=== PATIENT | female | born 1975 | race Caucasian/White ===

== ENCOUNTER 2017-03-02 04:48 | Emergency (ER) | END 2017-03-02 08:28 | disposition home or self-care (01) | DX: R06.02 Shortness of breath (principal); R07.89 Other chest pain | CPT/HCPCS: 71020; 84484; 93005; Z7502; Z7610 ==

== ENCOUNTER 2017-06-16 22:01 | Emergency (ER) | payer MEDICAID ==
[~2017-06-16] VITALS: Ht 162.6 cm; Wt 81.0 kg
[~2017-06-16 22:01] MED LIST: HYDR-3498 PO; IBUP-1542 PO; NITR-58 PO
[2017-06-16 22:07] VITALS: Ht 162.6 cm; Wt 81.0 kg
[2017-06-16] MEDS ORDERED: GENT5DRO28 RIGHT EYE (22:44)
--- NOTE | 2017-06-16 22:48 | ERD ---
ER Documentation Chief Complaint Chief Complaint R eye pain/redness d/t gluegun injury on eye- +vision but +sensitivity HPI Otherwise healthy 42-year-old female presenting with a chief complaints of hot glue gun versus eye 30 hours ago. Has not done anything to relieve the symptoms. Complains of her right eye. No discharge, change in vision, pain, or irritation. No headache. No fevers, chills. Patient has no other complaints and describes no other associated manifestations. Nursing notes have been reviewed and are consistent with history given. ROS All systems reviewed and are negative except as per history of present illness. Medications Home Meds Active Scripts Ciprofloxacin Opht* (Ciloxan*) 0.3%-3.5 Opht Oint, 1 APPLIC RIGHT EYE TID for 14 Days, EA Prov:GOLDY GARCIA PA-C 06/16/17 Ibuprofen* (Motrin*) 600 Mg Tab, 600 MG PO Q6, #20 TAB Prov:JASPAL JANG PA-C 03/02/17 Nitrofurantoin Monohyd Macrocr* (Macrobid*) 100 Mg Capsr, 100 MG PO BID for 7 Days, CAP Prov:SHAHEEN POLANCO PA-C 11/22/15 Hydrocodone Bit-Acetaminophen* ([place]*) 5-325 Mg Tab, 1 TAB PO Q6 Y for PAIN, # 10 TAB Prov:DOMINIC ZAMORA PA-C 01/06/15 Discontinued Scripts Gentamicin Sulfate* (Gentamicin Sulfate* Ophth) 0.3% - 5 Ml Drops, 1 DROP RIGHT EYE Q4 for 14 Days, EA Prov:GOLDY GARCIA PA-C 06/16/17 Allergies Allergies: Coded Allergies: No Known Drug Allergies (Verified Allergy, Unknown, 05/18/14) PMhx/Soc History of Surgery: Yes (gallblader 1999, surgical 2012) Anesthesia Reaction: No Hx Neurological Disorder: No Hx Respiratory Disorders: No Hx Cardiac Disorders: No Hx Psychiatric Problems: No Hx Miscellaneous Medical Probl: Yes (gestational DM) Hx Alcohol Use: Yes (SOCIAL ) Hx Substance Use: No Hx Tobacco Use: No Smoking Status: Never smoker Physical Exam Vitals Vital Signs Date Time Temp Pulse Resp B/P Pulse Ox O2 Delivery O2 Flow Rate FiO2 06/16/17 22:07 97.8 91 20 179/103 98 Physical Exam Const: Overweight 42-year-old female no acute distress Head: Atraumatic Eyes: Right lateral conjunctival injection. PERRLA, EOMI, no nystagmus. No swelling or other obvious abnormalities. No foreign body visualized. ENT: Normal External Ears, Nose and Mouth. Skin: No petechiae or rashes Back: No midline or flank tenderness Ext: No cyanosis, or edema Neur: Awake and alert Psych: Normal Mood and Affect Procedures/MDM Patient presents 30 hours status post hot glue gun versus right eye. Visual acuity was obtained and intact. No pain or concerning signs for endangerment of vision loss or other acute right eye. Antibiotic drops were prescribed outpatient. Have recommended nnia-cco-yvqxoqq acetaminophen for discomfort. Presented the case my attending who agrees with my assessment and plan. I have spoke with the patient regarding their condition and future management. They have verbally responded that they understand their status and treatment plan. The patients vitals are stable, and their current condition is appropriate for discharge. The patient will be given discharge instructions with return precautions. Ophthalmology list given with recommendation for 24-hour follow-up Departure Diagnosis: Primary Impression: Eye injury Encounter type: initial encounter Laterality: right Qualified Code: S05.91XA - Right eye injury, initial encounter Condition: Stable Patient Instructions: Flash Burn, Eye Additional Instructions: Follow up with your ophthalmology within the next 24 hours for a more thorough evaluation and a possible referral to a specialist. Return the the emergency department immediately if symptoms worsen or change. If you have any questions regarding medications, ask your pharmacist or us before you leave. If any adverse reactions occur while taking your medications, discontinue the treatment and return to the emergency department immediately. Take your medications as directed, and complete the entire course of treatment. GOLDY GARCIA PA-C Jun 16, 2017 22:48
[2017-06-16] MEDS ORDERED: CPR3OO3.5 RIGHT EYE (22:55)
== END 2017-06-16 23:16 | disposition home or self-care (01) ==
LOC: FTE 22:01
DX: S05.91XA Unspecified injury of right eye and orbit, initial encounter (principal); W22.8XXA Striking against or struck by other objects, initial encounter; Y92.9 Unspecified place or not applicable
CPT/HCPCS: 99283

== ENCOUNTER 2018-01-28 19:05 | Emergency (ER) | END 2018-01-28 22:02 | disposition left against medical advice (07) ==

== ENCOUNTER 2018-08-20 09:57 | Emergency (ER) | payer MEDICAID ==
[~2018-08-20] VITALS: Wt 79.0 kg
[~2018-08-20 09:57] MED LIST changes: +CPR3OO3.5 RIGHT EYE
[2018-08-20 09:59] VITALS: BP 158/78; PULSE 82; RESP 18
[2018-08-20] MEDS ORDERED: AZIT250T PO (10:32)
[2018-08-20] MEDS ORDERED: BENZ-6 PO (10:32)
[2018-08-20] MEDS ORDERED: ALBU18HF INHALATION (10:32)
--- NOTE | 2018-08-20 10:39 | ERD ---
ER Documentation Chief Complaint Chief Complaint DRY COUGH X 3 WEEKS HPI 43-year-old female patient with no significant past medical history presents to ED complaining of a dry cough that started 3 weeks ago. Patient reports that she tried weac-nly-mtypwio cough medication such as Robitussin however it has not helped with her symptoms. Denies any chest pain, wheezing, shortness of breath, nausea, vomiting, diarrhea, neck stiffness. Denies any recent traveling. Denies taking any control. ROS All systems reviewed and are negative except as per history of present illness. Medications Home Meds Active Scripts Albuterol Sulfate* (Ventolin HFA*) 18 Gm Hfa.aer.ad, 2 PUFF INHALATION Q4H, #1 INHALER Prov:SHAHEEN POLANCO PA-C 08/20/18 Azithromycin* (Zithromax*) 250 Mg Tablet, 250 MG PO .ZPACK DIRECTED, #6 TAB TAKE 500 MG (2 TABS) THE FIRST DAY THEN 250 MG (1 TAB) DAYS 2-5 Prov:SHAHEEN POLANCO PA-C 08/20/18 Benzonatate* (Tessalon Perle*) 100 Mg Capsule, 100 MG PO Q8H PRN for COUGH, #20 CAP Prov:SHAHEEN POLANCO PA-C 08/20/18 Ciprofloxacin Opht* (Ciloxan*) 0.3%-3.5 Opht Oint, 1 APPLIC RIGHT EYE TID for 14 Days, EA Prov:GOLDY GARCIA PA-C 06/16/17 Ibuprofen* (Motrin*) 600 Mg Tab, 600 MG PO Q6, #20 TAB Prov:JASPAL JANGC 03/02/17 Nitrofurantoin Monohyd Macrocr* (Macrobid*) 100 Mg Capsr, 100 MG PO BID for 7 Days, CAP Prov:SHAHEEN POLANCO PA-C 11/22/15 Hydrocodone Bit-Acetaminophen* ([place]*) 5-325 Mg Tab, 1 TAB PO Q6 PRN for PAIN, #10 TAB Prov:DOMINIC ZAMORA PA-C 01/06/15 Allergies Allergies: Coded Allergies: No Known Drug Allergies (Verified Allergy, Unknown, 05/18/14) PMhx/Soc History of Surgery: Yes (gallblader 1999, surgical 2012) Anesthesia Reaction: No Hx Neurological Disorder: No Hx Respiratory Disorders: No Hx Cardiac Disorders: No Hx Psychiatric Problems: No Hx Miscellaneous Medical Probl: Yes (gestational DM) Hx Alcohol Use: Yes (SOCIAL ) Hx Substance Use: No Hx Tobacco Use: No FmHx Family History: No diabetes, No coronary disease Physical Exam Vitals Vital Signs Date Temp Pulse Resp B/P (MAP) Pulse Ox O2 O2 Flow FiO2 Time Delivery Rate 08/20/18 98.1 82 18 158/78 99 09:59 (104) Physical Exam Const: Dea-krr-wiilxithv, well-nourished. In no acute distress. Head: Atraumatic, normocephalic Eyes: Normal Conjunctiva without injection. No purulent discharge. PERRL. EOMI ENT: Normal external ear. Ear canal without erythema. Tympanic membrane pearly dubose without effusion or bulging. Nasal canal clear with normal turbinates. Moist oropharynx without tonsillar exudates. Non-erythematous pharynx. Uvula midline. No drooling. No trismus. Neck: Full range of motion. No meningismus. No cervical lymphadenopathy. Resp: Clear to auscultation bilaterally. No wheezing, rhonchi, rales, or crackles. No accessory muscle use. No retractions. Cardio: Regular rate and rhythm. No murmurs, rubs or gallops. Abd: Soft, non tender, non distended. Normal bowel sounds. No palpable masses. No rebound tenderness. No guarding. Skin: No petechiae or rashes Back: No midline tenderness. No CVA tenderness. Ext: No cyanosis, or edema. Neur: Awake and alert. Psych: Normal Mood and Affect Procedures/MDM 43-year-old female patient with no significant past medical history presents to ED complaining of a dry cough that started 3 weeks ago. Patient is afebrile and nontoxic-appearing. Patient likely has bronchitis, patient will be treated on outpatient basis for bacterial etiology. This patient presents to the ED with symptoms consistent with a viral acute upper respiratory infection. Patient's physical exam include lungs which were clear to auscultation and a normal pulse oximetry. There is a low suspicion for pneumonia, pneumothorax, mononucleosis, pulmonary embolism, epiglottitis, otitis media, otitis externa, viral/strep pharyngitis, sinusitis, myocarditis, pericarditis, endocarditis, peritonsillar abscess, mastoiditis, retropharyngeal abscess, meningitis, sepsis, acute abdomen or other emergent conditions. Fluids, rest, and symptomatic treatment are recommended for the management of patient's symptoms. Diagnosis: Cough Discharge medications: Ventolin, Zithromax Patient was instructed to return to the ED for any new or worsening symptoms. They should otherwise follow up with the primary care provider within 2-3 days. The patient's questions were answered at the time of discharge. Patient understood and agreed with discharge management. Departure Diagnosis: Primary Impression: Cough Condition: Stable Patient Instructions: Bronchitis, Antiobiotic Treatment (Adult) Referrals: [facility] YOU HAVE RECEIVED A MEDICAL SCREENING EXAM AND THE RESULTS INDICATE THAT YOU DO NOT HAVE A CONDITION THAT REQUIRES URGENT TREATMENT IN THE EMERGENCY DEPARTMENT. FURTHER EVALUATION AND TREATMENT OF YOUR CONDITION CAN WAIT UNTIL YOU ARE SEEN IN YOUR DOCTORS OFFICE WITHIN THE NEXT 1-2 DAYS. IT IS YOUR RESPONSIBILITY TO MAKE AN APPOINTMENT FOR FOLOW-UP CARE. IF YOU HAVE A PRIMARY DOCTOR --you should call your primary doctor and schedule an appointment IF YOU DO NOT HAVE A PRIMARY DOCTOR YOU CAN CALL OUR PHYSICIAN REFERRAL HOTLINE AT IF YOU CAN NOT AFFORD TO SEE A PHYSICIAN YOU CAN CHOSE FROM THE FOLLOWING [facility] [address] [facility]. [facility] [address] [facility]. [facility] [address] [facility] [facility] [address] [facility]. [facility] [address] [facility] [facility]. [address] [facility]. [facility] YOU HAVE RECEIVED A MEDICAL SCREENING EXAM AND THE RESULTS INDICATE THAT YOU DO NOT HAVE A CONDITION THAT REQUIRES URGENT TREATMENT IN THE EMERGENCY DEPARTMENT. FURTHER EVALUATION AND TREATMENT OF YOUR CONDITION CAN WAIT UNTIL YOU ARE SEEN IN YOUR DOCTORS OFFICE WITHIN THE NEXT 1-2 DAYS. IT IS YOUR RESPONSIBILITY TO MAKE AN APPOINTMENT FOR FOLOW-UP CARE. IF YOU HAVE A PRIMARY DOCTOR --you should call your primary doctor and schedule and appointment IF YOU DO NOT HAVE A PRIMARY DOCTOR YOU CAN CALL OUR PHYSICIAN REFERRAL HOTLINE AT . IF YOU CAN NOT AFFORD TO SEE A PHYSICIAN YOU CAN CHOSE FROM THE FOLLOWING [facility] INSTITUTIONS: [facility] [address] [place] [address] [facility] [address] [place] [address] [facility] [address] [place] [address] [facility] URGENT CARE/SPECIALTIES Additional Instructions: Call your primary care doctor TOMORROW for an appointment during the next 2-3 days.See the doctor sooner or return here if your condition worsens before your appointment time. SHAHEEN POLANCO PA-C Aug 20, 2018 10:39
== END 2018-08-20 10:45 | disposition home or self-care (01) ==
LOC: FTE 09:57
DX: R05 Cough (principal)
CPT/HCPCS: 99283

== ENCOUNTER 2018-10-22 16:22 | Emergency (ER) | payer MEDICAID ==
[~2018-10-22] VITALS: Ht 157.5 cm; Wt 80.8 kg
[~2018-10-22 16:22] MED LIST changes: +ALBU18HF INHALATION; +AZIT250T PO; +BENZ-6 PO
[2018-10-22 16:54] VITALS: Ht 157.5 cm; Wt 80.8 kg
[2018-10-22] MEDS ORDERED: SOD CHLORIDE 0.9% 1,000 ML IV STA (18:20)
[2018-10-22] MEDS ORDERED: METHYLPREDNISOLONE 125 MG INJ IV STA (18:20)
[2018-10-22] MEDS ORDERED: DIPHENHYDRAMINE 50 MG INJ IV ONE (18:30)
[2018-10-22] MEDS ORDERED: MECLIZINE 12.5 MG TAB PO ONE (18:30)
--- NOTE | 2018-10-22 18:44 | ERD ---
ER Documentation Chief Complaint Chief Complaint throat numbness, dizziness, blurry vision, YANG X 1 day HPI This is a 43-year-old female that presents to the emergency department complaining of a sore throat for the past several days. Patient indicates she took amoxicillin that have been prescribed her but he never completed as she thought this was strep throat. She states however this was not prescribed by physician and she has not yet seen a physician for symptoms. She stated after taking the amoxicillin she felt slightly lightheaded dizzy and numbness of her throat tongue and lips. She went to the emergency department and took sxan-fem-adjkaao allergy medication. She indicated shortly after she felt lightheaded and dizzy. She denied any headache. She stated she felt a slight amount of swelling of her lips. She became very lightheaded and dizzy and felt as though she was going to pass out. She denied any chest pain or pressure that radiated to the neck arm back or jaw but was experience any palpitations. She started to notice her vision became slightly blurry and therefore she came to the emergency department to be further evaluated. The blurry vision has resolved. She indicates she does not wear glasses or contacts. She feels the swelling of her lips has improved. She denies any pruritus. She denies any abdominal pain. She denies any recent travel or prolonged immobilization. She states she has taken amoxicillin in the past with no similar symptoms. ROS All systems reviewed and are negative except as per history of present illness. Medications Home Meds Active Scripts Diphenhydramine Hcl (Benadryl) 25 Mg Cap, 25 MG PO Q6, #20 CAP Prov:JOHANNA GUEVARA MD 10/22/18 Meclizine Hcl* (Antivert*) 12.5 Mg Tab, 12.5 MG PO Q6H PRN for DIZZINESS, #20 TAB Prov:JOHANNA GUEVARA MD 10/22/18 Albuterol Sulfate* (Ventolin HFA*) 18 Gm Hfa.aer.ad, 2 PUFF INHALATION Q4H, #1 INHALER Prov:SHAHEEN POLANCO PA-C 08/20/18 Reported Medications Acetaminophen* (Acetaminophen*) 500 MG Extra Strength Tablet, 500 MG PO Q4H PRN for PAIN AND OR ELEVATED TEMP, TAB 10/22/18 Calcium Carbonate* (Tums X-Str) 300 Mg Tab.chew, 300 MG PO, TAB.CHEW 10/22/18 Discontinued Scripts Azithromycin* (Zithromax*) 250 Mg Tablet, 250 MG PO .ZPACK DIRECTED, #6 TAB TAKE 500 MG (2 TABS) THE FIRST DAY THEN 250 MG (1 TAB) DAYS 2-5 Prov:SHAHEEN POLANCO PA-C 08/20/18 Benzonatate* (Tessalon Perle*) 100 Mg Capsule, 100 MG PO Q8H PRN for COUGH, #20 CAP Prov:SHAHEEN POLANCO PA-C 08/20/18 Ciprofloxacin Opht* (Ciloxan*) 0.3%-3.5 Opht Oint, 1 APPLIC RIGHT EYE TID for 14 Days, EA Prov:GOLDY GARCIA PA-C 06/16/17 Ibuprofen* (Motrin*) 600 Mg Tab, 600 MG PO Q6, #20 TAB Prov:JASPAL JANG PA-C 03/02/17 Nitrofurantoin Monohyd Macrocr* (Macrobid*) 100 Mg Capsr, 100 MG PO BID for 7 Days, CAP Prov:SHAHEEN POLANCO PA-C 11/22/15 Hydrocodone Bit-Acetaminophen* ([place]*) 5-325 Mg Tab, 1 TAB PO Q6 PRN for PAIN, #10 TAB Prov:DOMINIC ZAMORA PA-C 01/06/15 Allergies Allergies: Coded Allergies: No Known Drug Allergies (Unverified Allergy, Unknown, 10/22/18) PMhx/Soc History of Surgery: Yes (gallblader 1999, surgical 2012) Anesthesia Reaction: No Hx Neurological Disorder: No Hx Respiratory Disorders: No Hx Cardiac Disorders: No Hx Psychiatric Problems: No Hx Miscellaneous Medical Probl: Yes (gestational DM) Hx Alcohol Use: Yes (SOCIAL ) Hx Substance Use: No Hx Tobacco Use: No Physical Exam Vitals Vital Signs Date Temp Pulse Resp B/P (MAP) Pulse Ox O2 O2 Flow FiO2 Time Delivery Rate 10/22/18 75 18 150/92 100 Room Air 20:47 (111) 10/22/18 77 18 170/88 100 Room Air 18:30 (115) 10/22/18 97.4 83 18 172/112 100 16:54 (132) Physical Exam Constitutional:Well-developed. Well-nourished. HEENT:Normocephalic. Atraumatic.Pupils were equal round reactive to light. Moist mucous membranes.No tonsillar exudates however erythema both tonsils. Uvula midline. No macroglossia. No angioedema. Funduscopy exam shows sharp optic disks and venous pulsations were present Neck: No nuchal rigidity. No lymphadenopathy. No posterior cervical spine tenderness or step-offs. Respiratory: Not using accessory muscles of respiration.Lungs were clear to auscultation bilaterally. No rhonchi. No rales. No wheezing. Cardiovascular: Regular rate regular rhythm.No murmurs. No rubs were appreciated.S1, S2 normal. Distal pulses are palpable 2+ bilaterally. GI: Abdomen was soft. Nontender. Non Distended. No pulsatile abdominal masses or bruits. No rebound. No guarding. Bowel sounds were present and normal. Muscle skeletal: Full range of motion of both the upper and lower extremities bilaterally.Normal muscle tone.No assymetrical calf tenderness or swelling. Skin: No petechia, no purpura. No lesions on the palms or the soles of the feet. No maculopapular rash. NEURO: Patient was alert, awake, orientated x3.No facial droop. Gait observed and normal with no ataxia.Speech had regular rate and rhythm. No focal neurological deficits. Station intact to sharp and dull of the upper and lower extremities and facial region. Peripheral fatigable nystagmus. Result Diagram: 10/22/18191910/22/181920 Results 24 hrs Laboratory Tests Test 10/22/18 19:20 10/22/18 19:21 10/22/18 19:25 10/22/18 19:38 White Blood Count 10.0 10^3/ul Red Blood Count 4.65 10^6/ul Hemoglobin 10.0 g/dl Hematocrit 33.0 % Mean Corpuscular 71.0 fl Volume Mean Corpuscular 21.5 pg Hemoglobin Mean Corpuscular 30.3 g/dl Hemoglobin Concen t Red Cell 17.2 % Distribution Width Platelet Count 342 10^3/UL Mean Platelet 10.6 fl Volume Immature 0.400 % Granulocytes % Neutrophils % 59.8 % Lymphocytes % 31.5 % Monocytes % 6.2 % Eosinophils % 1.5 % Basophils % 0.6 % Nucleated Red 0.0 /100WBC Blood Cells % Immature 0.040 10^3/ul Granulocytes # Neutrophils # 6.0 10^3/ul Lymphocytes # 3.2 10^3/ul Monocytes # 0.6 10^3/ul Eosinophils # 0.2 10^3/ul Basophils # 0.1 10^3/ul Nucleated Red 0.0 10^3/ul Blood Cells # Prothrombin Time 12.7 Sec Prothrombin Time 1.0 Ratio INR International 0.94 Normalized Ratio Activated 28.6 Sec Partial Thrombopl ast Time Sodium Level 137 mmol/L Potassium Level 3.9 mmol/L Chloride Level 97 mmol/L Carbon Dioxide 28 mmol/L Level Anion Gap 12 Blood Urea 13 mg/dl Nitrogen Creatinine 0.38 mg/dl Est Glomerular > 60 mL/min Filtrat Rate mL/min Glucose Level 160 mg/dl Calcium Level 9.5 mg/dl Total Bilirubin 0.1 mg/dl Direct Bilirubin 0.00 mg/dl Indirect 0.1 mg/dl Bilirubin Aspartate Amino 27 IU/L Transf (AST/SGOT) Alanine 26 IU/L Aminotransferase (ALT/SGPT) Alkaline 68 IU/L Phosphatase Creatine Kinase 51 IU/L Creatine Kinase 1.4 Index Creatinine Kinase 0.73 ng/ml MB (Mass) Troponin I < 0.012 ng/ml Total Protein 7.5 g/dl Albumin 4.0 g/dl Globulin 3.50 g/dl Albumin/Globulin 1.14 Ratio Urine Color STRAW Urine Clarity CLEAR Urine pH 7.0 Urine Specific 1.010 [place] Urine Ketones NEGATIVE mg/dL Urine Nitrite NEGATIVE mg/dL Urine Bilirubin NEGATIVE mg/dL Urine NEGATIVE mg/dL Urobilinogen Urine Leukocyte NEGATIVE [place]/ul Esterase Urine Hemoglobin NEGATIVE mg/dL Urine Glucose NEGATIVE mg/dL Urine Total NEGATIVE mg/dl Protein POC Beta HCG, NEGATIVE Qualitative Current Medications Medications Dose Sig/Po Start Time Status Last (Trade) Ordered Route PRN Stop Time Admin Dose Reason Admin Sodium 1,000 ml @ Q1H STAT 10/22/18 DC 10/22/18 Chloride 1,000 mls/hr IV 18:20 10/22/18 19:31 19:19 Meclizine 25 mg ONCE ONCE 10/22/18 DC 10/22/18 HCl PO 18:30 10/22/18 19:26 (Antivert) 18:31 25 mg ONCE ONCE 10/22/18 DC 10/22/18 Diphenhydrami IV 18:30 10/22/18 19:26 ne HCl 18:31 (Benadryl) 125 mg ONCE STAT 10/22/18 DC 10/22/18 Methylprednis IV 18:20 10/22/18 19:26 olone Sodium 18:24 Succinate (Solu-Medrol) Procedures/MDM This patient was seen and evaluated by myself. The patient presented to the emergency department complaining of dizziness. My differential diagnosis included but was not limited to hypovolemia, myocardial infarction, pulmonary embolism, hypoglycemia, hypoxia, anemia, vasovagal episode, hypothyroidism, anxiety, peripheral or central vertigo. The patient was placed on a nuclear monitoring technician, continuous pulse oximetry and IV access established by nursing staff. The patient was given IV fluids Zofran and Antivert. She was also treated for suspected allergic reaction. She was given IV Benadryl Pepcid and Solu-Medrol. The patient was complaining of dizziness and palpitations I did feel is necessary to obtain an EKG to rule out for atypical myocardial ischemia. 12 Lead EKG tracing ordered and reviewed by myself showed: Normal sinus rhythm of 96 bpm and no arrhythmia. NV interval normal. QRS duration normal. No ST segment elevation No ST segment depression. No changes consistent with acute ischemia. The patient had no severe electrolyte abnormalities. Observation Note: Time: 6 hours Family Hx: No Hypertension Evaluation: Multiple exams showed improving symptoms and no evidence of worsening of her symptoms. I did feel she had an adverse reaction to the a moxicillin in addition to peripheral vertigo can be safely discharged home. The patient was discharged home in fair condition. They were instructed to return to the emergency department at any time if there was any worsening of their condition. The patient stated they would follow up with their PCP in the next 24-48 hours to initiate a suitable medication regimen under the care of their PCP as well as to allow their PCP to monitor any drug reactions. The patient was discharged home with prescriptions after they gave informed consent to the new medication. They were also fully informed by myself on the adverse effects and adverse drug interactions in order to provide adequate safeguards to prevent possible adverse reactions to medications. Departure Diagnosis: Primary Impression: Dizziness Additional Impression: Adverse drug reaction Encounter type: initial encounter Qualified Codes: T50.905A - Adverse effect of unspecified drugs, medicaments and biological substances, initial encounter Condition: Fair JOHANNA GUEVARA MD Oct 22, 2018 18:44
[2018-10-22] MEDS ORDERED: ACET-141 PO (21:21)
[2018-10-22] MEDS ORDERED: CALC300T4 PO (21:21)
[2018-10-22] MEDS ORDERED: MECL12.574 PO (22:33)
[2018-10-22] MEDS ORDERED: DIPH25CA6 PO (22:34)
[2018-10-22 23:10] VITALS: BP 147/88; PULSE 74; RESP 18
== END 2018-10-22 23:25 | disposition home or self-care (01) ==
LOC: E/R 16:22
DX: R42 Dizziness and giddiness (principal); T36.0X5A Adverse effect of penicillins, initial encounter
CPT/HCPCS: 80053; 81003; 81025; 82550; 82553; 84484; 85025; 85610; 85730; 96374; 96375; J1200; J2930; J7030; Z7502; Z7610